=== PATIENT | male | born 1975 | race Caucasian/White ===

== ENCOUNTER 2020-11-30 12:37 | Emergency (ER) | payer OTHER ==
[~2020-11-30] VITALS: Ht 165.1 cm; Wt 72.6 kg
[2020-11-30] MEDS ORDERED: KETO10TA2 PO (17:12)
[2020-11-30] MEDS ORDERED: TAMS0.4C PO (17:12)
[2020-11-30] MEDS ORDERED: CIPRO500 MG PO (17:12)
== END 2020-11-30 17:22 | disposition home or self-care (01) ==
LOC: ER 12:37
DX: N20.2 Calculus of kidney with calculus of ureter (principal); R31.29 Other microscopic hematuria